=== PATIENT | male | born 1975 | race Caucasian/White ===

== ENCOUNTER → 2019-05-10 11:29 | Outpatient (BNVA) | payer OTHER, SELFPAY | PROVIDERS: PCP Nurse Practitioner Family; Visit Provider Nurse Practitioner Family | DX: R05 Cough (principal); J01.90 Acute sinusitis, unspecified; J40 Bronchitis, not specified as acute or chronic; R53.83 Other fatigue | CPT/HCPCS: 71046; 80053; 82306; 82607; 84443; 85025 ==

== ENCOUNTER → 2019-06-14 12:03 | Outpatient (BNVA) | payer OTHER, SELFPAY | PROVIDERS: PCP Nurse Practitioner Family; Visit Provider Nurse Practitioner Family | DX: R79.89 Other specified abnormal findings of blood chemistry (principal); R53.83 Other fatigue | CPT/HCPCS: 80048 ==

== ENCOUNTER → 2019-12-11 08:00 | Outpatient (BNVA) | payer OTHER, SELFPAY | PROVIDERS: PCP Nurse Practitioner Family; Visit Provider Nurse Practitioner Family | DX: I10 Essential (primary) hypertension (principal); E55.9 Vitamin D deficiency, unspecified; R05 Cough; E78.1 Pure hyperglyceridemia; Z71.89 Other specified counseling | CPT/HCPCS: 80053; 80061; 82306; 84443; 85025 ==

== ENCOUNTER 2020-02-05 12:15 | Outpatient (CLI) | payer SELFPAY ==
--- NOTE | 2020-02-05 12:23 | XR_ITS ---
WS: [id number] RIBS RIGHT WITH CHEST TECHNIQUE: 3 views of the right ribs with PA chest CLINICAL INFORMATION: right sided rib pain; fell through floor COMPARISON: May 10, 2019 FINDINGS: Mild chronic emphysematous changes. No acute pulmonary infiltrates. No pleural fluid. Right ribs are normal in appearance. No visualized fractures. No pneumothorax. Mild thoracic curve. XR/XR ribs RT mn 3V w [id number] IMPRESSION: 1. Mild chronic emphysematous changes. No pneumothorax. 2. No visualized right rib fractures.
== END 2020-02-05 12:16 | disposition home or self-care (01) ==
PROVIDERS: PCP Nurse Practitioner Family; Visit Provider Nurse Practitioner Family
DX: R07.81 Pleurodynia (principal); W19.XXXA Unspecified fall, initial encounter; J43.9 Emphysema, unspecified
CPT/HCPCS: 71101

== ENCOUNTER → 2020-08-01 09:17 | Outpatient (BNVA) | payer SELFPAY | PROVIDERS: PCP Nurse Practitioner Family; Visit Provider Nurse Practitioner Family | DX: I10 Essential (primary) hypertension (principal); E55.9 Vitamin D deficiency, unspecified; E78.1 Pure hyperglyceridemia; R13.10 Dysphagia, unspecified | CPT/HCPCS: 80053; 80061; 82306; 83036; 85025 ==

== ENCOUNTER → 2021-09-04 13:15 | Outpatient (BNVA) | payer SELFPAY | PROVIDERS: PCP Nurse Practitioner Family; Visit Provider Nurse Practitioner Family | DX: E55.9 Vitamin D deficiency, unspecified (principal); E78.1 Pure hyperglyceridemia; I10 Essential (primary) hypertension; J32.9 Chronic sinusitis, unspecified; K21.9 Gastro-esophageal reflux disease without esophagitis; Z12.5 Encounter for screening for malignant neoplasm of prostate | CPT/HCPCS: 80053; 80061; 82306; G0103 ==

== ENCOUNTER → 2024-05-08 08:39 | Outpatient (BNVA) | payer SELFPAY | PROVIDERS: PCP Nurse Practitioner Family; Visit Provider Nurse Practitioner Family | DX: M72.2 Plantar fascial fibromatosis (principal) | CPT/HCPCS: 73630 ==

== ENCOUNTER → 2024-06-29 11:43 | Outpatient (BNVA) | payer MEDICAID, SELFPAY | PROVIDERS: PCP Nurse Practitioner Family; Visit Provider Nurse Practitioner Family | DX: I10 Essential (primary) hypertension (principal); E78.1 Pure hyperglyceridemia; K21.9 Gastro-esophageal reflux disease without esophagitis; Z12.11 Encounter for screening for malignant neoplasm of colon | CPT/HCPCS: 80053; 80061; 82306; 82607; 83036; 84443; 85025; G0103 ==

== ENCOUNTER → 2024-07-10 09:49 | Outpatient (BNVA) | payer MEDICAID, SELFPAY | PROVIDERS: PCP Nurse Practitioner Family; Visit Provider Nurse Practitioner Family | DX: D69.6 Thrombocytopenia, unspecified (principal); R05.9 Cough, unspecified | CPT/HCPCS: 71046; 85025 ==

== ENCOUNTER 2024-08-07 07:06 | Outpatient (CLI) | payer MEDICAID, SELFPAY ==
--- NOTE | 2024-08-07 07:59 | CT_ITS ---
WS: [id number] CT chest w con* [id number] HISTORY: CHRONIC COUGH/HX OF SMOKE EXPOSURE FROM JOB TECHNIQUE: Axial imaging performed through the thorax. Coronal and sagittal reformats are submitted. All CT scans at [facility] use at least one of these dose optimization techniques: automated exposure control; mA and/or kV adjustment per patient size (includes targeted exams where dose is matched to clinical indication); or iterative reconstruction. CONTRAST: Omnipaque 350; 100 mL IV. DLP: 553.20 mGy.cm COMPARISON: Chest radiograph 07/10/2024 Lungs and central airway: Normal. Pleura: Normal. No pleural effusion. Heart and pericardium: Normal size heart with no pericardial effusion. Mediastinum and iker: No mediastinum or hilar adenopathy. Vessels: Normal size aortic and pulmonary artery. No coronary artery calcifications. Chest wall and lower neck: No soft tissue masses. Upper abdomen: No adrenal mass. Visualized gallbladder is negative. There is a small hiatal hernia. Osseous structures: No destructive process. CT/CT chest w con* [id number] IMPRESSION: 1. Well aerated lungs. No mass or pneumonia. No hypersensitivity pneumonia. 2. No mediastinal or hilar adenopathy. 3. Small hiatal hernia.
[2024-08-07] MEDS: iohexol 350 mg/mL 500 mL Btl (per mL) IV (08:50)
== END 2024-08-07 07:07 | disposition home or self-care (01) ==
PROVIDERS: PCP Nurse Practitioner Family; Visit Provider Nurse Practitioner Family
DX: R05.3 Chronic cough (principal)
CPT/HCPCS: 71260; 94010; 94726; 94729

== ENCOUNTER 2024-08-16 06:59 | Day surgery (SDC) | payer MEDICAID, SELFPAY ==
[2024-08-16 07:15] VITALS: BP 144/107; PULSE 97; RESP 16; TEMP 36.2; O2SAT 95; BMI 31.2
[2024-08-16] MEDS: sodium chloride 0.9% 1,000 ML 15 ML IV (07:27)
--- NOTE | 2024-08-16 07:30 | W.PM.OPSFHP ---
Same Day Surgery H&P Indication for Procedure/HPI DATE OF PROCEDURE: August 16, 2024 CHIEF COMPLAINT/INDICATIONFOR SURGICAL PROCEDURE: need for screening colonoscopy PREOP DIAGNOSIS: need for screening colonoscopy PLANNED PROCEDURE: Operation Date: 08/16/24 08:20 Proposed Procedures p Colonoscopy 34572 G0121 Z12.11(Not Applicable) - Kwan Bishop MD Medications/Allergies* Home Medications ?Medication ?Instructions ?Recorded ?Confirmed ?Type lisinopril 10 mg tablet 20 mg PO DAILY 08/13/24 08/16/24 History Allergies/Adverse Reactions Allergy/AdvReac Type Severity Reaction Status Date / Time No Known Allergies Allergy Verified 08/13/24 09:11 Current Medications: Generic Name Dose Route Start Last Admin Trade Name Freq PRN Reason Stop Dose Admin Sodium Chloride 1,000 mls @ 15 mls/hr 08/16/24 07:06 08/16/24 07:27 Sodium Chloride 0.9% IV 08/17/24 07:05 15 mls/hr .Q24H PRN Administration COLONOSCOPY FLUIDS Pertinent History/Comorbid Conditions* Medical History (Updated 10/13/23 @ 06:20 by Francine Lopez NP) Pure hyperglyceridemia Essential (primary) hypertension Surgical History (Updated 12/11/19 @ 09:38 by BRYANT Jarrett) Hx of hernia repair Family History (Updated 05/10/19 @ 10:25 by Sendy Frost LPN, RT) No pertinent family history Family/Other Social History Smoking and tobacco/nicotine status: never used tobacco/nicotine Second hand smoke exposure: No Alcohol intake: never Substance/Drug Use: never Caregiver/support person: Yes Lives independently: Yes Household members: spouse and children Housing: House Marital status: Number of children: 2 Current occupational status: employed Current occupation: [employer] Current gender identity: Male Pertinent Exam Findings alert, oriented x 3, clear to auscultation bilaterally and regular rate & rhythm Recommendations Surgery/Procedure today Coding Level of Care Code Acute Code for Chg Fwd
--- NOTE | 2024-08-16 07:39 | P.ANESASSM_ITS ---
Pre-Anesthetic Assessment Height/Weight: Height 1.78 m Weight 98.883 kg Temp Pulse Resp BP Pulse Ox O2 Del Method 97.1 F L 97 16 144/107 95 Room Air 08/16/24 07:15 08/16/24 07:15 08/16/24 07:15 08/16/24 07:15 08/16/24 07:15 08/16/24 07:15 Preop Diagnosis: need for screening colonoscopy Operation Date: 08/16/24 08:20 Proposed Procedures p Colonoscopy [id number] G0121 Z12.11(Not Applicable) - Kwan Bishop MD Familial anesthetic complications: None Was Beta Angie taken within 24 hours: N/A Was Clonidine taken within 24 hours: N/A Last intake: Intake Last Liquid Date 08/15/24 Last Liquid Time 20:00 Last Solid Date 08/14/24 Last Solid Time 19:30 Social No alcohol and No tobacco Exam alert, oriented x 3, clear to auscultation bilaterally and regular rate & rhythm Airway Submandibular: within normal limits Cervical ROM: within normal limits Mallampati: Class II Dentition: full History/ROS No significant history except as noted and No significant complaints Pulmonary Cough Reactive airway disease CV/HEM Hypertension Chronic Renal Insufficiency Hepatic None reported GI Gastroesophageal Reflux Disease (Controlled with meds) and Hiatal Hernia Dysphagia Metabolic Hyperlipidemia Musc/skel None reported Neuropsych Neuropathy Anesthetic Plan ASA status: 2 Anesthesia: Anesthesia Evaluation, General and MAC Risk of > 500 ml blood loss (7ml/kg in children): No Medications/Allergies Home Medications ?Medication ?Instructions ?Recorded ?Confirmed ?Last Taken ?Type fenofibrate nanocrystallized 145 145 mg PO DAILY 90 da ys #90 tabs 06/29/24 08/16/24 08/15/24 Rx mg tablet pantoprazole 40 mg tablet,delayed 40 mg PO DAILY 90 da ys #90 tabs 06/29/24 08/16/24 08/15/24 Rx release ondansetron 8 mg disintegrating 8 mg PO Q8H PRN nausea and 07/11/24 08/16/24 Unknown Rx tablet vomiting #3 tabs lisinopril 10 mg tablet 20 mg PO DAILY 08/13/24 04/08/1708/13/24 History Allergies Allergy/AdvReac Type Severity Reaction Status Date / Time No Known Allergies Allergy Verified 08/13/24 09:11 Current Medications Generic Name Dose Route Start Last Admin Trade Name Nicq PRN Reason Stop Dose Admin Sodium Chloride 1,000 mls @ 15 mls/hr 08/16/24 07:06 08/16/24 07:27 Sodium Chloride 0.9% IV 08/17/24 07:05 15 mls/hr .Q24H PRN Administration COLONOSCOPY FLUIDS PFSH Anesthesia Medical History Pure hyperglyceridemia Essential (primary) hypertension Surgical History Hx of hernia repair Family History Family/Other No pertinent family history Social History Smoking and tobacco/nicotine status: never used tobacco/nicotine Second hand smoke exposure: No Alcohol intake: never Substance/Drug Use: never Caregiver/support person: Yes Lives independently: Yes Household members: spouse and children Housing: House Marital status: Number of children: 2 Current occupational status: employed Current occupation: [employer] Current gender identity: Male Data Anesthesia Cardiac Studies: No Data to Display
[2024-08-16 08:27] VITALS: BP 145/76; PULSE 86; RESP 15; TEMP 36.1; O2SAT 95
--- NOTE | 2024-08-16 08:34 | ANE.PACU2 ---
Inpatient post-anesthesia follow up: Airway intact: Yes Vital signs: Temperature 97.0 F Pulse Rate 78 Respiratory Rate 18 Blood Pressure 121/81 Pulse Oximetry 94 Oxygen Delivery Me thod Room Air Oxygen Flow Rate Fraction of Inspir ed Oxygen Hydration adequate: Yes Nausea and vomiting: No Pain level: 2 Mental status: Baseline
[2024-08-16 08:41] VITALS: BP 121/81; PULSE 78; RESP 18; O2SAT 94
== END 2024-08-16 08:54 | disposition home or self-care (01) ==
PROVIDERS: PCP Nurse Practitioner Family; Visit Provider Surgery
PROC: 0DJD8ZZ Inspection of Lower Intestinal Tract, Via Natural or Artificial Opening Endoscopic (ICD-10-PCS; CPT 45378; principal; 2024-08-16 08:20)
DX: Z12.11 Encounter for screening for malignant neoplasm of colon (principal); K62.1 Rectal polyp; K21.9 Gastro-esophageal reflux disease without esophagitis; E78.5 Hyperlipidemia, unspecified; I12.9 Hypertensive chronic kidney disease with stage 1 through stage 4 chronic kidney disease, or unspecified chronic kidney disease; N18.9 Chronic kidney disease, unspecified; Z79.899 Other long term (current) drug therapy
CPT/HCPCS: 45380; 88305; J2704; J7030